=== PATIENT | male | born 1965 | race Caucasian/White ===

== ENCOUNTER 2017-07-26 11:53 | Emergency (ER) | payer OTHER ==
--- NOTE | 2017-07-26 22:27 | RAD ---
LUMBAR SPINE THREE VIEWS 07/26/17 No acute fracture was seen. Very minor wedging of T12 through L2 is most likely longstanding. Small o steophytes are seen at most lumbar levels. The disc space are normal in height. There is mild anterol isthesis of L4 on L5 that appears to be due to facet arthritis which is prominent at this level. The SI joints appear normal. IMPRESSION: Degenerative changes as noted. POS: HOME
== END 2017-07-26 12:40 | disposition home or self-care (01) ==
LOC: BURERS 11:53
DX: S39.012A Strain of muscle, fascia and tendon of lower back, initial encounter (principal); S70.12XA Contusion of left thigh, initial encounter; S50.02XA Contusion of left elbow, initial encounter; W55.22XA Struck by cow, initial encounter
CPT/HCPCS: 72100

== ENCOUNTER 2022-01-28 11:57 | Emergency (ER) | payer BC, OTHER ==
[2022-01-28] MEDS ORDERED: Boostrix 0.5 ML (Tdap) VIAL (>/=7 yrs of age) ONE (12:39)
[2022-01-28] MEDS ORDERED: Bacitracin 1 PK ONE (13:31)
[2022-01-28] MEDS ORDERED: HYDROcodone/Acetaminophen 5/325 mg Tablet ONE (13:31)
== END 2022-01-28 13:41 | disposition home or self-care (01) ==
LOC: BURERS 11:57
DX: S61.112A Laceration without foreign body of left thumb with damage to nail, initial encounter (principal); W27.0XXA Contact with workbench tool, initial encounter
CPT/HCPCS: 12001; 90471; 90715